=== PATIENT | male | born 1980 | race Caucasian/White ===

== ENCOUNTER 2020-03-13 19:11 | Observation (INO) | payer OTHER ==
[~2020-03-13] VITALS: Ht 170.2 cm; Wt 50.6 kg
[2020-03-13] MEDS ORDERED: HUMALOG100 UNIT/1 (19:36)
[2020-03-13] MEDS ORDERED: LANTUS (19:37)
[2020-03-13 19:38] VITALS: BP 138/92
[2020-03-13 20:06] LABS: URINE BILIRUBIN NEGATIVE (Negative); URINE BLOOD 1+ (Negative); URINE CLARITY CLEAR; URINE COLOR YELLOW; URINE GLUCOSE-RANDOM 3+ (Negative); URINE KETONES NEGATIVE (Negative); URINE LEUKOCYTES-REFLEX NEGATIVE (Negative); URINE NITRITE-REFLEX NEGATIVE (Negative); URINE PROTEIN 2+ (Negative); URINE UROBILINOGEN 0.2 E.U./dl (0.2-1.0)
[2020-03-13 20:07] LABS: SQUAMOUS 4-10 Moderate /LPF (0-3)
[2020-03-13 20:08] LABS: BACTERIA-REFLEX None Seen /HPF (None Seen); CASTS None Seen /LPF (None Seen); CRYSTALS None Seen /LPF (None Seen); URINE RBC 3-10 Few /HPF (0-2); URINE WBC-REFLEX 0-5 Rare /HPF (0-5)
[2020-03-13 20:24] LABS: ABSOLUTE LYMPHOCYTES 2.5 thou/uL (0.8-5.3); ABSOLUTE MONOCYTES 0.3 thou/uL (0.0-1.2); ABSOLUTE NEUTROPHILS 3.2 thou/uL (1.6-8.1); BASOPHILS 0.7 %; EOSINOPHILS 0.5 %; HEMATOCRIT 38.9 % (42.0-52.0); HEMOGLOBIN 13.3 gm/dL (14.0-18.0); LYMPHOCYTES 41.5 %; MCH 30.7 pg (26.0-34.0); MCHC 34.2 g/dL (28.0-37.0); MCV 89.7 fL (80.0-100.0); MONOCYTES 4.5 %; MPV 8.5 fl. (7.2-11.1); NUCLEATED RBCS 0 /100WBC; PLATELET COUNT* 202 thou/uL (150-400); POLYS 52.8 %; RBC 4.33 mil/uL (4.50-6.00); RDW-CV 13.7 % (10.5-14.5)
[2020-03-13 20:43] LABS: ALBUMIN 3.1 g/dL (3.4-5.0); ALKALINE PHOSPHATASE 94 U/L (46-116); ANION GAP 10 mmol/L (7-16); BUN 17 mg/dL (7-18); CALCIUM 8.5 mg/dL (8.5-10.1); CHLORIDE 94 mmol/L (98-107); CO2 26 mmol/L (21-32); CREATININE 1.5 mg/dL (0.6-1.3); MAGNESIUM 1.8 mg/dL (1.8-2.4); POTASSIUM 4.2 mmol/L (3.5-5.1); SGOT 47 U/L (15-37); SGPT 85 U/L (30-65); SODIUM 130 mmol/L (136-145); TOTAL BILIRUBIN 0.4 mg/dL (<0.1-1.0); TOTAL PROTEIN 7.2 g/dL (6.4-8.2)
[2020-03-13 20:46] LABS: GLUCOSE 674 mg/dL (70-99)
[2020-03-13 21:09] LABS: AMP/METHAMP Negative (Negative); BARBITURATES Negative (Negative); BENZODIAZEPINES Negative (Negative); COCAINE Negative (Negative); METHADONE Negative (Negative); OPIATES Negative (Negative); PCP Negative (Negative); THC POSITIVE (Negative)
[2020-03-13 23:54] VITALS: BP 117/81
[2020-03-14] VITALS (7 sets, daily range): BP systolic 108–127; BP diastolic 71–86
--- NOTE | 2020-03-14 05:32 | NUR ---
VITALS STABLE, AFEBRILE. PT COMPLAINS OF ABDOMINAL PAIN, OTHERWISE UNEVENTFUL NIGHT. INSULIN GTT OFF SINCE PT ARRIVED TO ICU AT 0005. NO UOP SINCE ARRIVAL, NO BM. CALL LIGHT WITHIN REACH. WILL CONTINUE MONITORING.
[2020-03-14 05:36] LABS: CALCIUM 7.7 mg/dL (8.5-10.1); CREATININE 1.2 mg/dL (0.6-1.3); POTASSIUM 3.4 mmol/L (3.5-5.1)
[2020-03-14] MEDS ORDERED: LANTUS SUBQ (07:30)
[2020-03-14] MEDS ORDERED: HUMALOG100 UNIT/1 SUBQ (07:30)
[2020-03-14] MEDS ORDERED: HUMULIN R100 UNIT/1 SUBQ (07:32)
[2020-03-14] MEDS ORDERED: INPEN (FOR HUM1 EACH SUBQ (07:34)
--- NOTE | 2020-03-14 09:32 | NUR ---
PT VERY UNHAPPY REGARDING CARE. STATES TO GF, "THEY ARE DOING NOTHING FOR MY ABDOMINAL PAIN, THEY DONT GIVE A SHIT ABOUT ME." PULLED ALL OF HIS LEADS OFF, AND SHOUTED TAKE THESE IVS OUT. PT REFUSED TO SIGN AMA PAPERWORK. THIS NURSE CALLED SECURITY TO ESCORT PT OUT OF ICU.
--- NOTE | 2020-03-14 10:31 | EKG ---
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[place] : 1980 Requested By: Naomie Love Order Number: [id number] MD: Trace Sandoval Measurements Intervals [place] Rate: 95 P: 45 AR: 151 QRS: 46 QRSD: 93 T: 75 QT: 337 QTc: 424 Interpretive Statements Sinus rhythm Probable left atrial enlargement No previous ECG available for comparison Electronically Signed On 03-14-2020 10:31:21 CDT by Trace Sandoval [email or web address] <ELECTRONICALLY SIGNED> By: Trace Sandoval MD, [facility] 03/14/20 1031 05 05 Trace Sandoval MD, [facility] /EPI
[2020-03-15 05:07] LABS: GLYCOHEMOGLOBIN (HGB A1C) 14.6 % (4.8-5.6)
== END 2020-03-14 09:47 | disposition left against medical advice (07) ==
LOC: M.ERS 19:11 → M.TBA-ER 22:49 → M.ICU 22:49
PROVIDERS: Personal Emergency Response Attendant; ADMIT Internal Medicine; ATTEND Internal Medicine
DX: E10.65 Type 1 diabetes mellitus with hyperglycemia (principal); E87.2 Acidosis; F12.90 Cannabis use, unspecified, uncomplicated; E10.22 Type 1 diabetes mellitus with diabetic chronic kidney disease; N18.9 Chronic kidney disease, unspecified; R10.32 Left lower quadrant pain; R11.10 Vomiting, unspecified; F17.210 Nicotine dependence, cigarettes, uncomplicated; Z79.4 Long term (current) use of insulin; Z79.899 Other long term (current) drug therapy; Z20.828 Contact with and (suspected) exposure to other viral communicable diseases

== ENCOUNTER 2020-12-16 01:44 | Emergency (ER) | payer OTHER ==
[~2020-12-16] VITALS: Ht 167.6 cm; Wt 54.4 kg
[~2020-12-16 01:44] MED LIST: HUMALOG100 UNIT/1; HUMALOG100 UNIT/1 SUBQ; HUMULIN R100 UNIT/1 SUBQ; INPEN (FOR HUM1 EACH SUBQ; LANTUS; LANTUS SUBQ
[2020-12-16] MEDS ORDERED: LANTUS SUBQ (01:57)
[2020-12-16 02:40] LABS: ABSOLUTE BASOPHILS 0.1 thou/uL (0.0-0.2); ABSOLUTE EOSINOPHILS 0.1 thou/uL (0.0-0.7); ABSOLUTE LYMPHOCYTES 2.2 thou/uL (0.8-5.3); ABSOLUTE MONOCYTES 0.3 thou/uL (0.0-1.2); ABSOLUTE NEUTROPHILS 5.4 thou/uL (1.6-8.1); BASOPHILS 0.9 %; EOSINOPHILS 1.2 %; HEMATOCRIT 33.2 % (42.0-52.0); HEMOGLOBIN 11.3 gm/dL (14.0-18.0); MCH 31.1 pg (26.0-34.0); MCV 91.4 fL (80.0-100.0); MONOCYTES 3.7 %; NUCLEATED RBCS 0 /100WBC; PLATELET COUNT* 220 thou/uL (150-400); POLYS 67.2 %; RBC 3.64 mil/uL (4.50-6.00); RDW-CV 14.8 % (10.5-14.5)
[2020-12-16 03:05] LABS: CALCIUM 8.8 mg/dL (8.5-10.1); CREATININE 1.3 mg/dL (0.6-1.3); POTASSIUM 5.1 mmol/L (3.5-5.1)
[2020-12-16 03:05] LABS: URINE BILIRUBIN NEGATIVE (Negative); URINE BLOOD 2+ (Negative); URINE COLOR YELLOW; URINE GLUCOSE-RANDOM 3+ (Negative); URINE KETONES NEGATIVE (Negative); URINE LEUKOCYTES-REFLEX NEGATIVE (Negative); URINE NITRITE-REFLEX NEGATIVE (Negative); URINE PROTEIN 3+ (Negative); URINE SPECIFIC GRAVITY >= 1.030 (1.005-1.030); URINE UROBILINOGEN 0.2 E.U./dl (0.2-1.0)
[2020-12-16 03:07] LABS: URINE CLARITY SL HAZY
[2020-12-16 03:09] LABS: ALBUMIN 2.5 g/dL (3.4-5.0); MAGNESIUM 2.2 mg/dL (1.8-2.4); TOTAL BILIRUBIN 0.2 mg/dL (<0.1-1.0); TOTAL PROTEIN 6.3 g/dL (6.4-8.2)
[2020-12-16 03:29] LABS: BACTERIA-REFLEX 1-9 Few /HPF (None Seen); CRYSTALS None Seen /LPF (None Seen); FINE GRANULAR CASTS 0-3 Few /LPF (None Seen); HYALINE CASTS 0-3 Few /LPF (None Seen); MUCUS 4-6 Moderate strn/LPF (None Seen); SQUAMOUS 0-3 Few /LPF (0-3); URINE WBC-REFLEX 0-5 Rare /HPF (0-5)
[2020-12-16 03:40] LABS: AMP/METHAMP POSITIVE (Negative); BARBITURATES Negative (Negative); BENZODIAZEPINES Negative (Negative); COCAINE Negative (Negative); METHADONE Negative (Negative); OPIATES Negative (Negative); PCP Negative (Negative); THC POSITIVE (Negative)
[2020-12-16 04:00] VITALS: BP 145/91
[2020-12-16 04:10] LABS: INR 0.9; PROTIME 9.4 Seconds (9.20-11.50)
--- NOTE | 2020-12-16 12:13 | EKG ---
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[place] : 1980 Requested By: Sho Souza Order Number: [id number] Reading MD: Dao Starks Measurements Intervals [place] Rate: 99 P: 34 RI: 140 QRS: 22 QRSD: 91 T: 55 QT: 352 QTc: 452 Interpretive Statements Sinus rhythm Consider left ventricular hypertrophy Early repolarization Baseline wander in lead(s) V1,V5 Compared to ECG 03/13/2020 20:06:16 No significant changes Electronically Signed On 12-16-2020 12:13:17 CDT by Dao Starks [email or web address] <ELECTRONICALLY SIGNED> By: Dao Starks MD, FAC 12/16/20 1213 0159 0159 Dao Starks MD, [facility] /EPI
[2020-12-16 23:06] LABS: HIV-1/HIV-2 ANTIBODY Non Reactive (Non Reactive)
== END 2020-12-16 04:00 | disposition home or self-care (01) ==
LOC: M.ERS 01:44
PROVIDERS: Emergency Medicine
DX: G25.1 Drug-induced tremor (principal); R22.1 Localized swelling, mass and lump, neck; E11.9 Type 2 diabetes mellitus without complications; Z79.4 Long term (current) use of insulin; Z91.041 Radiographic dye allergy status; Z88.0 Allergy status to penicillin